=== PATIENT | female | born 1985 | race African-American/Black ===

== ENCOUNTER 2023-06-20 11:52 | Day surgery (SDC) | payer OTHER ==
[2023-06-20 12:19] VITALS: BMI 26.4
[2023-06-20] MEDS ORDERED: hydrALAZINE 20 MG/ML VIAL SLOW IVP PRN (12:25)
[2023-06-20 12:36] LABS: Bilirubin Neg (Negative); Blood, Urine Negative (Negative); Clarity Clear (Clear); Glucose, Urine (Dipstick) Normal (Negative); Ketone, Urine Negative (Negative); Leukocyte Negative (Negative); Nitrite Negative (Negative); Protein, Urine (Dipstick) Negative (Neg-Trace); Urobilinogen Normal mg/dL (Less than 2)
[2023-06-20] MEDS ORDERED: Lactated Ringer's 1,000 ML IV SCH (12:45)
[2023-06-20] MEDS ORDERED: Polyethylene Glycol 3350 17 GM Packet PO SCH (13:00)
[2023-06-20] MEDS ORDERED: Acetaminophen 500 MG TAB PO SCH (13:00)
[2023-06-20] MEDS ORDERED: Lidocaine 5% Patch TD SCH (13:30)
[2023-06-20] MEDS ORDERED: Lidocaine 4% Patch TD SCH (13:45)
[2023-06-20 14:02] LABS: Amphetamine Not Detected (NotDetected); Barbiturates Screen Not Detected (NotDetected); Benzodiazepine Screen Not Detected (NotDetected); Cocaine Metabolite Screen Not Detected (NotDetected); Methadone Not Detected (NotDetected); Methamphetamine Not Detected (NotDetected); Opiate Screen Not Detected (NotDetected); Oxycodone Screen Not Detected (NotDetected); Phencyclidine (PCP) Not Detected (NotDetected); THC/Cannabinoid Screen Not Detected (NotDetected); Tricyclic Screen Not Detected (NotDetected)
[2023-06-20 14:22] LABS: CAUTI Indications for Culture Pregnancy; RBC/HPF 0-3 HPF (0-3); WBC/HPF 0-3 HPF (0-3)
[2023-06-20 14:23] LABS: Bacteria/HPF 1+ HPF (None Seen); Squamous Epithelial 0-3 HPF (0-3); Urine Culture Reflex Yes Yes
[2023-06-21] MEDS ORDERED: Transdermal Patch Removal TOP SCH (01:45)
== END 2023-06-20 15:20 | disposition home or self-care (01) ==
LOC: CSHLD/OP 11:52
PROVIDERS: ATTEND Family Medicine
DX: O47.02 False labor before 37 completed weeks of gestation, second trimester (principal); O09.522 Supervision of elderly multigravida, second trimester; O99.612 Diseases of the digestive system complicating pregnancy, second trimester; K59.09 Other constipation; K59.00 Constipation, unspecified; O99.891 Other specified diseases and conditions complicating pregnancy; M54.50 Low back pain, unspecified; G40.909 Epilepsy, unspecified, not intractable, without status epilepticus; O99.352 Diseases of the nervous system complicating pregnancy, second trimester; Z86.718 Personal history of other venous thrombosis and embolism; Z79.899 Other long term (current) drug therapy; Z3A.22 22 weeks gestation of pregnancy
CPT/HCPCS: 80306; 81001; 87086; 87480; 87510; 87660; 99283

== ENCOUNTER 2023-09-20 07:42 | Observation (INO) | payer OTHER ==
[2023-09-20 08:08] VITALS: BMI 29.5
[2023-09-20] MEDS ORDERED: hydrALAZINE 20 MG/ML VIAL SLOW IVP PRN ×2 (08:49→11:33)
[2023-09-20] MEDS ORDERED: Lactated Ringer's 1,000 ML IV SCH (09:00)
[2023-09-20 10:06] LABS: Bilirubin Neg (Negative); Blood, Urine Negative (Negative); Clarity Clear (Clear); Glucose, Urine (Dipstick) Normal (Negative); Ketone, Urine Negative (Negative); Leukocyte Negative (Negative); Nitrite Negative (Negative); Protein, Urine (Dipstick) Negative (Neg-Trace); Urobilinogen Normal mg/dL (Less than 2)
[2023-09-20 10:15] LABS: #Eosinphils 0.2 10x3/uL (0.0-0.5); #Monocytes 0.5 10x3/uL (0.0-1.1); #Neutrophils 4.7 10x3/uL (1.5-8.4); %Basophils 0.4 % (0.0-2.0); %Eosinophils 2.9 % (0.0-6.0); %Lymphocytes 26.2 % (18.0-47.0); %Monocytes 6.7 % (0.0-10.0); %Neutrophils 62.6 % (40.0-75.0); Hematocrit 24.5 % (34.9-44.5); Hemoglobin 8.3 g/dL (12.0-15.5); Mean Corpuscular HGB CONC 33.9 g/dL (32.0-36.0); Mean Corpuscular Hemoglobin 28.5 pg (27.0-33.0); Mean Corpuscular Volume 84.2 fl (81.6-98.3); Mean Platelet Volume 9.9 fl (7.4-10.4); Platelet Count 240 10x3/uL (150-450); RBC Distribution Width 12.7 % (11.5-14.5); Red Blood Cell (RBC) Count 2.91 10x6/uL (3.90-5.03); White Blood Cell (WBC) Count 7.6 10x3/uL (3.5-10.5)
[2023-09-20 10:28] LABS: Bacteria/HPF None Seen HPF (None Seen); CAUTI Indications for Culture Pregnancy; RBC/HPF None Seen HPF (0-3); Squamous Epithelial 0-3 HPF (0-3); Urine Culture Reflex Yes Yes; WBC/HPF None Seen HPF (0-3)
[2023-09-20 10:30] LABS: ALT (SGPT) 7 U/L (8-55); AST (SGOT) 12 U/L (5-34); Albumin 2.8 g/dL (3.5-5.0); Alkaline Phosphatase 105 U/L (40-110); Anion Gap 15 mmol/L (10-20); BUN (Urea Nitrogen) 4 mg/dL (7.0-18.7); Bilirubin, Total 0.7 mg/dL (0.2-1.2); Calc. Creatinine Clearance 179 mL/min (70-130); Carbon Dioxide 15 mmol/L (22-29); Chloride 107 mmol/L (98-107); Estimated GFR 115; Globulin 2.4 g/dL (2.4-3.5); Glucose 69 mg/dL (70-105); Potassium 4.3 mmol/L (3.5-5.1); Protein, Total 5.2 g/dL (6.0-8.3); Sodium 133 mmol/L (136-145)
[2023-09-20] MEDS ORDERED: Ferrous Sulfate 325 MG TAB PO SCH (11:30)
[2023-09-20] MEDS ORDERED: Tranexamic Acid 1,000 MG/10 ML VIAL IVP PRN (11:33)
[2023-09-20] MEDS ORDERED: Methylergonovine 0.2 MG/ML VIAL IM PRN (11:33)
[2023-09-20] MEDS ORDERED: Ondansetron PF 4 MG/2 ML Vial IVP PRN (11:33)
[2023-09-20] MEDS ORDERED: Diphenoxylate HCl/Atropine Tablet PO PRN (11:33)
[2023-09-20] MEDS ORDERED: Misoprostol 200 MCG TAB PR PRN (11:33)
[2023-09-20] MEDS ORDERED: Acetaminophen 500 MG TAB PO PRN (11:33)
[2023-09-20] MEDS ORDERED: Carboprost 250 MCG/ML AMP IM PRN (11:33)
[2023-09-20] MEDS ORDERED: Promethazine HCl 25 MG/ML VIAL IM PRN (11:33)
[2023-09-20] MEDS ORDERED: Oxytocin 30 units/NS 500 ML 500 ML IV SCH (11:45)
[2023-09-20 12:34] LABS: Syphilis Antibody Nonreactive (Nonreactive); Syphilis Antibody Index 0.05 S/CO (<1.00 Non-Reactive)
[2023-09-20 13:12] LABS: HBSAg Index 0.19 S/CO (0-0.99); Hep B Surf Ag - L&D Non-Reactive S/CO (NonReactive)
[2023-09-20] MEDS: Lactated Ringer's 1,000 ML IV SCH ×2 (13:40→13:51)
[2023-09-20 15:02] LABS: Hemoglobin 10.8 g/dL (12.0-15.5); Mean Corpuscular HGB CONC 32.7 g/dL (32.0-36.0); Mean Corpuscular Hemoglobin 27.8 pg (27.0-33.0); Mean Corpuscular Volume 85.1 fl (81.6-98.3); Platelet Count 324 10x3/uL (150-450); Red Blood Cell (RBC) Count 3.88 10x6/uL (3.90-5.03); White Blood Cell (WBC) Count 10.2 10x3/uL (3.5-10.5)
== END 2023-09-21 09:45 | disposition home or self-care (01) ==
LOC: CSHLD/OP 07:42 → CSHLD 11:45
PROVIDERS: ADMIT Family Medicine; ATTEND Family Medicine
DX: O47.03 False labor before 37 completed weeks of gestation, third trimester (principal); Z3A.35 35 weeks gestation of pregnancy; Z88.8 Allergy status to other drugs, medicaments and biological substances
CPT/HCPCS: 36415; 76815; 80053; 81001; 85025; 86780; 86850; 86900; 86901; 87086; 87340; 99285; G0378

== ENCOUNTER 2023-09-25 12:50 | Day surgery (SDC) | payer OTHER ==
[2023-09-25] MEDS ORDERED: Acetaminophen 500 MG TAB ONE (13:01)
[2023-09-25] MEDS ORDERED: Iron Sucrose Complex 500 MG in Sodium Chloride 0.9% 250 ML 250 ML IVPB SCH (13:15)
[2023-09-25] MEDS ORDERED: Acetaminophen 500 MG TAB PO SCH (13:15)
== END 2023-09-25 18:00 | disposition home or self-care (01) ==
LOC: CSHSDC 12:50
PROVIDERS: ATTEND Family Medicine
DX: O99.013 Anemia complicating pregnancy, third trimester (principal); D64.9 Anemia, unspecified; Z3A.00 Weeks of gestation of pregnancy not specified
CPT/HCPCS: 96365; 96366; J1756; J7050

== ENCOUNTER 2023-09-29 08:36 | Day surgery (SDC) | payer OTHER ==
[2023-09-29] MEDS ORDERED: Acetaminophen 500 MG TAB ONE (08:44)
[2023-09-29] MEDS ORDERED: Acetaminophen 500 MG TAB PO SCH (09:00)
[2023-09-29] MEDS ORDERED: Iron Sucrose Complex 500 MG in Sodium Chloride 0.9% 250 ML 250 ML IVPB SCH (09:00)
== END 2023-09-29 14:30 | disposition home or self-care (01) ==
LOC: CSHSDC 08:36
PROVIDERS: ATTEND Family Medicine
DX: O99.013 Anemia complicating pregnancy, third trimester (principal); D50.9 Iron deficiency anemia, unspecified; Z88.8 Allergy status to other drugs, medicaments and biological substances; Z87.891 Personal history of nicotine dependence
CPT/HCPCS: J1756; J7050

== ENCOUNTER 2023-10-01 13:09 | Inpatient (IN) | payer OTHER ==
[2023-10-01] MEDS ORDERED: Promethazine HCl 25 MG/ML VIAL IM PRN (13:26)
[2023-10-01] MEDS ORDERED: hydrALAZINE 20 MG/ML VIAL SLOW IVP PRN (13:26)
[2023-10-01] MEDS ORDERED: Lidocaine 1% (PF) 30 ML VIAL SC PRN (13:26)
[2023-10-01] MEDS ORDERED: Carboprost 250 MCG/ML AMP IM PRN (13:26)
[2023-10-01] MEDS ORDERED: Misoprostol 200 MCG TAB PR PRN (13:26)
[2023-10-01] MEDS ORDERED: Ondansetron PF 4 MG/2 ML Vial IVP PRN (13:26)
[2023-10-01] MEDS ORDERED: HYDROcodone/Acetaminophen 5/325 mg Tablet PO PRN (13:26)
[2023-10-01] MEDS ORDERED: Diphenoxylate HCl/Atropine Tablet PO PRN (13:26)
[2023-10-01] MEDS ORDERED: Ibuprofen 800 MG TAB PO PRN (13:26)
[2023-10-01] MEDS ORDERED: Acetaminophen 500 MG TAB PO PRN (13:26)
[2023-10-01] MEDS ORDERED: Tranexamic Acid 1,000 MG/10 ML VIAL IVP PRN (13:26)
[2023-10-01] MEDS ORDERED: Lactated Ringer's 1,000 ML IV SCH (13:30)
[2023-10-01] MEDS ORDERED: Oxytocin 30 units/NS 500 ML 500 ML IV SCH ×3 (13:30)
[2023-10-01 15:44] VITALS: BMI 30.1
[2023-10-01 15:57] LABS: Hematocrit 31.3 % (34.9-44.5); Hemoglobin 11.1 g/dL (12.0-15.5); Mean Corpuscular HGB CONC 35.5 g/dL (32.0-36.0); Mean Corpuscular Volume 84.6 fl (81.6-98.3); Mean Platelet Volume 10.9 fl (7.4-10.4); Platelet Count 294 10x3/uL (150-450); RBC Distribution Width 14.3 % (11.5-14.5); White Blood Cell (WBC) Count 10.5 10x3/uL (3.5-10.5)
[2023-10-01 16:35] LABS: HBSAg Index 0.25 S/CO (0-0.99); Hep B Surf Ag - L&D Non-Reactive S/CO (NonReactive)
[2023-10-01 16:37] LABS: Syphilis Antibody Nonreactive (Nonreactive); Syphilis Antibody Index 0.06 S/CO (<1.00 Non-Reactive)
[2023-10-02] MEDS: Calcium Carbonate 500 MG ChewTAB PO PRN (08:39)
[2023-10-02] MEDS: fentaNYL 50 mcg/mL 1 mL Vial SLOW IVP PRN (13:48)
[2023-10-02] MEDS: Ibuprofen 800 MG TAB PO SCH (18:12)
[2023-10-02] MEDS ORDERED: Milk Of Magnesia 30 ML UDCUP PO PRN (19:18)
[2023-10-02] MEDS ORDERED: Ondansetron PF 4 MG/2 ML Vial IVP PRN (19:18)
[2023-10-02] MEDS ORDERED: Lanolin Ointment 7 GM TUBE TOP PRN (19:18)
[2023-10-02] MEDS ORDERED: hydrALAZINE 20 MG/ML VIAL SLOW IVP PRN (19:18)
[2023-10-02] MEDS ORDERED: diphenhydrAMINE 25 MG CAP PO PRN (19:18)
[2023-10-02] MEDS ORDERED: Promethazine HCl 25 MG/ML VIAL IM PRN (19:18)
[2023-10-02] MEDS ORDERED: Bisacodyl 10 MG SUPP PR PRN (19:18)
[2023-10-02] MEDS: HYDROcodone/Acetaminophen 5/325 mg Tablet PO PRN (19:43)
[2023-10-02] MEDS: Docusate 100 MG CAP PO SCH (21:35)
[2023-10-02] MEDS: Benzocaine-Menthol 82.5 ML CAN TOP PRN (21:36)
[2023-10-03] MEDS: Ibuprofen 800 MG TAB PO SCH (01:43)
[2023-10-03] MEDS: Prenatal Vitamin 1 TAB PO SCH (09:31)
[2023-10-03] MEDS: Enoxaparin 40 MG (0.4 mL) SYRINGE SC SCH (09:34)
[2023-10-03] MEDS: Ferrous Sulfate 325 MG TAB PO SCH (09:36)
[2023-10-04 08:41] VITALS: BP 118/59; TEMP 98
[2023-10-04] MEDS: Methylergonovine 0.2 MG/ML VIAL ONE (08:41)
[2023-10-04] MEDS: Boostrix 0.5 ML (Tdap) VIAL (>/=7 yrs of age) IM ONE (08:41)
== END 2023-10-04 15:00 | disposition home or self-care (01) | DRG 807 ==
LOC: CSHLD 13:09 → CSHPP 10-02 20:40
PROVIDERS: ADMIT Family Medicine; ATTEND Family Medicine
PROC: 10E0XZZ Delivery of Products of Conception, External Approach (ICD-10-PCS; principal; 2023-10-02)
PROC: 10907ZC Drainage of Amniotic Fluid, Therapeutic from Products of Conception, Via Natural or Artificial Opening (ICD-10-PCS; 2023-10-02)
DX: O36.8130 Decreased fetal movements, third trimester, not applicable or unspecified (principal); Z37.0 Single live birth; Z3A.37 37 weeks gestation of pregnancy; Z79.82 Long term (current) use of aspirin; Z79.899 Other long term (current) drug therapy; Z88.8 Allergy status to other drugs, medicaments and biological substances
CPT/HCPCS: 85027; 86780; 86850; 86900; 86901; 87340; J1650; J3010